=== PATIENT | male | born 1970 | race Caucasian/White ===

== ENCOUNTER → 2024-03-11 | Outpatient (CLI) | payer SELFPAY ==
--- NOTE | 2024-03-11 17:25 | RAD_ITS ---
STUDY: X-RAY CHEST REASON FOR EXAM: Male, 53 years old. cough TECHNIQUE: Frontal and lateral views of the chest. COMPARISON: None. FINDINGS: Right perihilar airspace disease. There is no demonstrated pleural abnormality. Normal size heart. Normal mediastinum and janell. Normal visualized pulmonary arteries. Normal visualized aortic arch and descending thoracic aorta. Normal visualized thoracic spine. Normal visualized ribs, clavicles, and shoulders. There is no demonstrated abnormality of the visualized soft tissue structures of the upper abdomen. RAD/Chest PA and Lateral IMPRESSION: Right perihilar airspace disease Electronically Signed: Declan Beltre MD at 18:40 EDT ,
== END | disposition home or self-care (01) ==
LOC: MTRAD 17:25
PROVIDERS: Referring Provider Physician Assistant; Visit Provider Physician Assistant
DX: R05.9 Cough, unspecified (principal)
CPT/HCPCS: 71046

== ENCOUNTER 2025-05-28 08:12 | Emergency (ER) | payer SELFPAY ==
[2025-05-28 08:12] VITALS: BP 127/85; PULSE 84; RESP 16; TEMP 36.4; O2SAT 95; BMI 33.3
--- NOTE | 2025-05-28 08:26 | CT_ITS ---
PROCEDURE: ABDOMEN/PELVIS W IV CONT ONLY 05/28/2025 REASON FOR EXAM: LLQ PAIN, HX OF DIVERTICULITIS Nausea and fever. TECHNIQUE: Procedure Code: [id number] Modality: CT Procedure: ABDOMEN/PELVIS W IV CONT ONLY Coronal and Sagittal reconstruction series were provided. CONTRAST: Isovue-300 VOLUME: 100 mL One or more dose reduction techniques were used (e.g., Automated exposure control, adjustment of the mA and/or kV according to patient size, use of iterative reconstruction technique. RADIATION DOSE SUMMARY: CTDlvol: 18.4 mGy DLP: 764.79 mGycm COMPARISON: None FINDINGS: Lung bases: Minimal increased linear markings at the lung bases sagittally more prominent at the right lung base suggestive of linear atelectasis and/or scarring. Liver: Normal size. No mass. Gallbladder: Unremarkable Spleen: Normal size. Pancreas: Normal size without evidence of mass surrounding inflammation or ductal dilation. Adrenals: Unremarkable Kidneys: Normal renal sizes. No hydronephrosis. Bladder: The bladder is not completely filled. Mild degree of diffuse bladder wall thickening with increased markings in the surrounding fat suggestive of inflammatory change. Bowel: Circumferential wall thickening of the distal portion of the descending colon extending into the sigmoid colon where there are multiple sigmoid diverticula in keeping with acute sigmoid diverticulitis. Increased markings are seen in the surrounding peritoneal fat. No evidence of abscess formation at this time. Appendix: Unremarkable Lymph nodes: Unremarkable. Vasculature: Mild diffuse atherosclerotic calcifications are noted. Peritoneum / Retroperitoneum: Unremarkable Bones: Degenerative changes of the spine. CT/Abdomen/Pelvis W IV Cont ONLY IMPRESSION: Findings in keeping with acute sigmoid diverticulitis without evidence of absce ss formation or free fluid. The inflammation extends into the distal portion of the descending colon. Reading Location: [facility]
[2025-05-28] MEDS: 0.9% Normal Saline (1000mL) 1,000 ML 999 ML IV (08:40)
--- NOTE | 2025-05-28 08:43 | EDS_ITS ---
HPI History of Present Illness Chief Complaint: Abd Pain Narrative Narrative: Patient is a 54-year-old male with past medical history of diverticulitis who presented to the emergency department with a chief complaint of abdominal pain. He states that his abdominal pain started last night and he states that he has not had a flare in a significant mount time and ever since cleaning up his diet. He states that he believes that this is a diverticulitis flare. Denies any sick contacts denies black stools denies blood in his stool he rates his pain an 8 out of 10 he states that when he gets up and moves around this makes his pain worse [facility] Medical History Pulmonary edema Home Medications ?Medication ?Instructions ?Recorded ?Last Taken ?Type benzonatate 200 mg capsule 200 mg PO TID PRN cough #20 caps 03/11/24 Unknown Rx levofloxacin 750 mg tablet 750 mg PO DAILY #10 tabs Unknown Rx benzonatate 200 mg capsule 200 mg PO TID PRN cough #10 caps 03/17/24 Unknown Rx levofloxacin 750 mg tablet 750 mg PO DAILY #5 tabs Unknown Rx amoxicillin 875 mg-potassium 1 tab PO Q12H 7 days #14 tabs 05/28/25 Unknown Rx clavulanate 125 mg tablet dicyclomine 20 mg tablet 20 mg PO TID PRN abdominal p ain 05/28/25 Unknown Rx #20 tabs ondansetron 4 mg disintegrating 4 mg PO Q6H PRN nausea and 05/28/25 Unknown Rx tablet vomiting #20 tabs oxycodone-acetaminophen 5 mg-325 1 tab PO Q6H PRN pain 2 days #8 05/28/25 Unknown Rx mg tablet (Endocet) tabs Allergy/AdvReac Type Severity Reaction Status Date / Time No Known Allergies Allergy Verified 05/28/25 08:12 Social History Smoking Status: Current every day smoker tobacco type: e-cigarettes and smokeless tobacco ROS ROS ED ROS Narrative Constitutional: Denies any fevers, chills, headaches Cardiovascular: Denies chest pain Respiratory: Shortness of breath Abdomen: Complains of abdominal pain nausea vomiting as noted above : Denies urinary symptoms Neurological: Denies numbness, weakness, tingling Musculoskeletal: Denies back pain Skin: Denies any rashes or lesions EXAM Physical Exam Narrative Exam Narrative: General: Patient lying in bed rest comfortably did not appear to be in acute distress Head: Atraumatic, normocephalic Eyes: PERRL bilaterally, EOMI bilaterally, no conjunctival injection noted Neck: Soft, supple, trachea midline Cardiovascular: Regular rate and rhythm Respiratory: Clear to auscultation bilaterally Abdomen: Soft, nondistended, tenderness palpation left quadrant no rebound or guarding on exam Extremities: +5/5 strength noted in the bilateral lower extremities Neurological: Patient following commands knew that he was at [facility] year is 2024 Skin: Warm, dry, tact no rashes or lesions noted Const Vital Signs: 05/28/25 08:12 Temperature 97.6 F L Temperature Source Oral Pulse Rate 84 Respiratory Rate 16 Blood Pressure 127/85 H Blood Pressure Mean 99 Pulse Ox 95 Oxygen Delivery Method Room Air MDM MDM MDM Narrative Medical decision making narrative: Patient is a 54-year-old male who presented to the emergency department the chief complaint of abdominal pain. On the differential diagnose includes but not limited to bowel obstruction, viral gastroenteritis, colon cancer, diverticulitis. Once workup is obtained reviewed he will be reevaluated. Patient be given IV fluids morphine and Zofran. Patient CBC reviewed which showed a leukocytosis of 14,000, Zina stable 12.9, platelet count was noted be 192. Patient sodium normal 136, potassium normal 4.4, creatinine 0.99. Patient AST and ALT are 22 and 26 respectively lipase normal at 48. Patient CT on pelvis with IV contrast was reviewed and showed findings consistent with acute diverticulitis no abscess. Did discuss results with the patient he would like to go home at this point time. He is vies to follow-up with general surgery in the outpatient setting and was educated on the importance of obtaining a outpatient colonoscopy. He will be given Augmentin as well as Zofran ODT, Bentyl and Percocet. He was vies not operate anything under the influence that medication and he was advised to use this for severe pain. He is encouraged return if worsening symptoms or any other concerns. All question concerns answered he is discharged home in stable condition significant other bedside is also agreeable with this plan Lab Data Labs: Laboratory Results - last 24 hr 05/28/25 08:45 WBC 14.6 H RBC 4.40 L Hgb 12.9 L Hct 38.2 L MCV 86.8 MCH 29.3 MCHC 33.8 RDW Std Deviation 40.3 RDW Coeff of Ian 12.5 Plt Count 192 MPV 10.3 Immature Gran % (Auto) 0.500 Neut % (Auto) 73.1 H Lymph % (Auto) 16.3 L Otoe % (Auto) 9.0 Eos % (Auto) 0.8 Baso % (Auto) 0.3 Absolute Neuts (auto) 10.7 H Absolute Lymphs (auto) 2.38 Nucleated RBC % 0 Sodium 136 Potassium 4.4 Chloride 104 Carbon Dioxide 20.4 L Anion Gap 12 BUN 10 Creatinine 0.99 Estim Creat Clear Calc 90.35 Est GFR (MDRD) Non-Af 92 BUN/Creatinine Ratio 9.9 L Glucose 112 H Calcium 9.0 Total Bilirubin 0.77 AST 22 ALT 26 Alkaline Phosphatase 69 Total Protein 7.2 Albumin 4.2 Globulin 3.0 Albumin/Globulin Ratio 1.4 Lipase 48 Radiography Diagnostic Testing: Clinical Impression(s) from Imaging Studies Abdomen/Pelvis CT 05/28/25 08:26 IMPRESSION: Findings in keeping with acute sigmoid diverticulitis without evidence of abscess formation or free fluid. The inflammation extends into the distal portion of the descending colon. Reading Location: [facility] Discharge Plan Triage Chief Complaint: Abd Pain ED Provider: Juni Broderick Dx/Rx/DC Orders Clinical Impression: Abdominal pain, Diverticulitis Prescriptions: New ondansetron 4 mg tablet,disintegrating 4 mg PO Q6H PRN (Reason: nausea and vomiting) Qty: 20 0RF oxycodone-acetaminophen [Endocet] 5-325 mg tablet 1 tab PO Q6H PRN (Reason: pain) 2 Days Qty: 8 0RF dicyclomine 20 mg tablet 20 mg PO TID PRN (Reason: abdominal pain) Qty: 20 0RF amoxicillin-pot clavulanate 875-125 mg tablet 1 tab PO Q12H 7 Days Qty: 14 0RF No Action levofloxacin 750 mg tablet 750 mg PO DAILY Qty: 10 0RF benzonatate 200 mg capsule 200 mg PO TID PRN (Reason: cough) Qty: 20 0RF levofloxacin 750 mg tablet 750 mg PO DAILY Qty: 5 0RF Rx Instructions: these are to replace the 5 tablets he lost benzonatate 200 mg capsule 200 mg PO TID PRN (Reason: cough) Qty: 10 0RF Rx Instructions: these are to replace to 10 pills he lost Primary Care Provider: Care Physician,No Primary Referrals: Bryant Zambrano MD [Med Staff - Active Staff, General Surgery] Care Physician,No Primary [Primary Care Provider, Medical] Amber Cook, AGRICULTURE DEPARTMENT CHAIR-C [[facility], [facility]] Activity Restrictions/Additional Instructions: Take prescriptions as prescribed and sure that you use the Zofran with the narcotic that you are prescribed Endocet as this will make your stomach upset. Do not operate anything under the influence this medication. Your CT did show evidence of diverticulitis. You need to follow-up with general surgery in the outpatient setting and have a colonoscopy obtained as well. Print Language: [place] Disposition Disposition: Home, Self Care
[2025-05-28 08:56] LABS: Hematocrit 38.2 % (40-54); Hemoglobin 12.9 g/dL (13.0-16.5); Immature Granulocytes Count 0.070 X10^3/uL (0.0-0.0); Mean Corp Hgb Conc 33.8 g/dL (32-36); Mean Corpuscular Volume 86.8 fL (80-94); Mean Platelet Vol. 10.3 fl (6.2-12.0); NRBC Flagged by Analyzer 0 % (0-5); Platelet Count 192 K/mm3 (150-450); RBC Distribution Width CV 12.5 % (11.6-14.6); RBC Distribution Width SD 40.3 fl (35.1-43.9); Red Blood Count 4.40 M/mm3 (4.6-6.2); White Blood Count 14.6 K/mm3 (4.4-11.0)
[2025-05-28 09:18] LABS: AST(SGOT) 22 U/L (<=37); Alanine Aminotransfer ALT/SGPT 26 U/L (<=46); Albumin, Serum 4.2 g/dL (3.5-5.0); Alkaline Phosphatase 69 U/L (40-129); Anion Gap 12 (5-15); BUN 10 mg/dL (4-19); BUN/Creat Ratio 9.9 RATIO (10-20); Calcium,Total 9.0 mg/dL (7.6-11.0); Carbon Dioxide 20.4 mmol/L (21.0-32.0); Chloride 104 mmol/L (98-108); Estimated Creatinine Clearance 90.35 ml/min (50-250); Globulin 3.0 g/dL (2.2-4.2); Glucose 112 mg/dL (70-99); Lipase 48 U/L (13-75); Potassium 4.4 mmol/L (3.3-5.1)
[2025-05-28 09:54] VITALS: BP 115/79; PULSE 65; RESP 18; TEMP 37; O2SAT 96
== END 2025-05-28 10:04 | disposition home or self-care (01) ==
PROVIDERS: Emergency Provider Emergency Medicine; Visit Provider Emergency Medicine
DX: K57.92 Diverticulitis of intestine, part unspecified, without perforation or abscess without bleeding (principal); R06.02 Shortness of breath; F17.290 Nicotine dependence, other tobacco product, uncomplicated
CPT/HCPCS: 74177; 80053; 83690; 85025; 99283; Q9967; A4216; J2405